=== PATIENT | female | born 2000 | race Caucasian/White ===

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

== ENCOUNTER 2020-02-28 10:42 | Emergency (ER) | payer MEDICAID, OTHER ==
[~2020-02-28] VITALS: Ht 167.6 cm; Wt 61.3 kg
[~2020-02-28 10:42] MED LIST changes: +KEFL500C17 PO; +MIRE1IUD IU
[2020-02-28 10:43] VITALS: BP 106/66
[2020-02-28] MEDS ORDERED: ALBU8.5H (10:50)
[2020-02-28] MEDS ORDERED: KEFL500C17 PO (11:29)
[2020-02-28] MEDS ORDERED: VENTAER INH (11:29)
[2020-02-28] MEDS ORDERED: CEPHALEXIN 500 MG CAP PO ONE (11:30)
== END 2020-02-28 11:58 | disposition home or self-care (01) ==
LOC: M ED 10:42
DX: J02.0 Streptococcal pharyngitis (principal); Z76.0 Encounter for issue of repeat prescription; Z88.1 Allergy status to other antibiotic agents; Z88.8 Allergy status to other drugs, medicaments and biological substances; Z91.013 Allergy to seafood; Z79.51 Long term (current) use of inhaled steroids; Z79.899 Other long term (current) drug therapy

== ENCOUNTER 2020-09-11 12:31 | Emergency (ER) | payer OTHER ==
[~2020-09-11 12:31] MED LIST changes: +ALBU8.5H
[2020-09-11] MEDS ORDERED: LORazepam 1 MG TAB PO ONE (12:45)
[2020-09-11 14:42] LABS: HEMATOCRIT 40.9 % (36.0-47.0); HEMOGLOBIN 13.8 g/dl (12.0-15.5); MEAN CORPUSCULAR HEMOGLOBIN 30.5 pg (27.0-33.0); MEAN CORPUSCULAR HGB CONC 33.7 g/dl (32.0-36.5); MEAN CORPUSCULAR VOLUME 90.5 fl (80.0-96.0); PLATELET COUNT, AUTOMATED 275 10^3/uL (150-450); RED BLOOD COUNT 4.52 10^6/uL (4.00-5.40); WHITE BLOOD COUNT 11.4 10^3/uL (4.0-10.0)
[2020-09-11 15:24] LABS: ACETAMINOPHEN LEVEL < 2.0 UG/ML (10.0-30.0); ALBUMIN 3.9 GM/DL (3.2-5.2); ALT/SGPT 21 U/L (12-78); BILIRUBIN,DIRECT 0.2 MG/DL (0.0-0.2); BILIRUBIN,TOTAL 0.5 MG/DL (0.2-1.0); BLOOD UREA NITROGEN 9 MG/DL (7-18); CALCIUM LEVEL 9.2 MG/DL (8.5-10.1); CARBON DIOXIDE LEVEL 22 MEQ/L (21-32); CHLORIDE LEVEL 108 MEQ/L (98-107); CREATININE FOR GFR 0.54 MG/DL (0.55-1.30); ETHYL ALCOHOL (ETHANOL) 0.003 % (0.000-0.010); GLUCOSE, FASTING 76 MG/DL (70-100); POTASSIUM SERUM 3.9 MEQ/L (3.5-5.1); SODIUM LEVEL 141 MEQ/L (136-145); TOTAL PROTEIN 6.9 GM/DL (6.4-8.2)
[2020-09-11] MEDS ORDERED: HALOPERIDOL 5MG/ML VIAL (J1630 PER 1) IM ONE (20:20)
[2020-09-11] MEDS ORDERED: LORazepam 2 MG/ML VIAL IM ONE (20:20)
[2020-09-11] MEDS ORDERED: diphenhydrAMINE 50MG/ML VIAL (J1200) IM ONE (20:20)
[2020-09-11 21:21] LABS: AMPHETAMINES LEVEL URINE POSITIVE (NEGATIVE); BARBITURATES URINE NEGATIVE (NEGATIVE); BENZODIAZEPINES URINE NEGATIVE (NEGATIVE); CANNABINOIDS URINE POSITIVE (NEGATIVE); COCAINE METABOLITE URINE NEGATIVE (NEGATIVE); METHADONE URINE NEGATIVE (NEGATIVE); OPIATES URINE NEGATIVE (NEGATIVE); PHENCYCLIDINE URINE NEGATIVE (NEGATIVE)
[2020-09-12 02:25] LABS: HCG, SERUM QUALITATIVE NEGATIVE (NEGATIVE)
[2020-09-12 06:59] VITALS: BP 118/67
--- NOTE | 2020-09-12 08:39 | ECGEPIP ---
[facility] - ED Test Date: 2020-09-11 Pat Name: SADA WOODRUFF Department: Room: - Gender: Female Echocardiographer: HANNAH : 2000 Requested By: Kevin Barrios Order Number: [id number] Reading MD: Kevin Morales Measurements Intervals [place] Rate: 60 P: 55 IN: 176 QRS: 103 QRSD: 98 T: 62 QT: 398 QTc: 398 Interpretive Statements Sinus rhythm with premature supraventricular complexes Rightward axis INCOMPLETE RIGHT BUNDLE BRANCH BLOCK NO PRIORS FOR COMPARISON Electronically Signed on 09-12-2020 8:39:02 EDT by Kevin Morales
== END 2020-09-12 07:04 ==
LOC: M ED 12:31
DX: F29 Unspecified psychosis not due to a substance or known physiological condition (principal); R94.31 Abnormal electrocardiogram [ECG] [EKG]; Z88.1 Allergy status to other antibiotic agents; Z91.013 Allergy to seafood; Z79.3 Long term (current) use of hormonal contraceptives
CPT/HCPCS: 36415; 51701; 80048; 80076; 80143; 80307; 82077; 84443; 84703; 85027; 87798; 93005; 96372; 99285; J1200; J1630; J2060

== ENCOUNTER 2020-11-14 22:33 | Emergency (ER) | payer MEDICAID, OTHER ==
[~2020-11-14] VITALS: Ht 165.1 cm; Wt 62.2 kg
[2020-11-14 22:35] VITALS: BP 133/76
[2020-11-15] MEDS ORDERED: BICILLIN L-A 2,400,000 UNIT/4 ML SYRINGE (J0561-24)PENICILLIN G BENZATINE IM ONE (00:10)
[2020-11-15] MEDS ORDERED: CALALOT4 TOP (00:16)
== END 2020-11-15 00:45 | disposition home or self-care (01) ==
LOC: M ED 22:33
DX: J02.0 Streptococcal pharyngitis (principal); F19.10 Other psychoactive substance abuse, uncomplicated; Z88.1 Allergy status to other antibiotic agents; Z91.013 Allergy to seafood; Z79.899 Other long term (current) drug therapy

== ENCOUNTER 2020-12-07 23:40 | Emergency (ER) | payer OTHER ==
[~2020-12-07] VITALS: Ht 170.2 cm; Wt 59.1 kg
[~2020-12-07 23:40] MED LIST changes: +CALALOT4 TOP
[2020-12-07 23:49] VITALS: BP 132/81
[2020-12-08 00:30] LABS: HEMATOCRIT 43.9 % (36.0-47.0); HEMOGLOBIN 14.6 g/dl (12.0-15.5); MEAN CORPUSCULAR HEMOGLOBIN 29.6 pg (27.0-33.0); MEAN CORPUSCULAR HGB CONC 33.3 g/dl (32.0-36.5); PLATELET COUNT, AUTOMATED 347 10^3/uL (150-450); RED BLOOD COUNT 4.93 10^6/uL (4.00-5.40); WHITE BLOOD COUNT 19.1 10^3/uL (4.0-10.0)
[2020-12-08 00:55] LABS: AMPHETAMINES LEVEL URINE NEGATIVE (NEGATIVE); BARBITURATES URINE NEGATIVE (NEGATIVE); BENZODIAZEPINES URINE NEGATIVE (NEGATIVE); CANNABINOIDS URINE POSITIVE (NEGATIVE); COCAINE METABOLITE URINE NEGATIVE (NEGATIVE); METHADONE URINE NEGATIVE (NEGATIVE); OPIATES URINE NEGATIVE (NEGATIVE); PHENCYCLIDINE URINE NEGATIVE (NEGATIVE)
[2020-12-08 00:59] LABS: ACETAMINOPHEN LEVEL < 2.0 UG/ML (10.0-30.0); ALBUMIN 4.7 GM/DL (3.2-5.2); ALT/SGPT 25 U/L (12-78); BILIRUBIN,DIRECT 0.2 MG/DL (0.0-0.2); BILIRUBIN,TOTAL 0.7 MG/DL (0.2-1.0); BLOOD UREA NITROGEN 18 MG/DL (7-18); CARBON DIOXIDE LEVEL 26 MEQ/L (21-32); CHLORIDE LEVEL 106 MEQ/L (98-107); CREATININE FOR GFR 0.81 MG/DL (0.55-1.30); ETHYL ALCOHOL (ETHANOL) < 0.003 % (0.000-0.010); GLUCOSE, FASTING 82 MG/DL (70-100); POTASSIUM SERUM 3.9 MEQ/L (3.5-5.1); SALICYLATE LEVEL 2.3 MG/DL (5.0-30.0); SODIUM LEVEL 138 MEQ/L (136-145); TOTAL PROTEIN 8.4 GM/DL (6.4-8.2)
[2020-12-08] MEDS ORDERED: LORazepam 1 MG TAB PO STA (01:08)
== END 2020-12-08 03:20 | disposition home or self-care (01) ==
LOC: M ED 23:40
DX: Z04.6 Encounter for general psychiatric examination, requested by authority (principal); F33.9 Major depressive disorder, recurrent, unspecified; E11.9 Type 2 diabetes mellitus without complications; J45.909 Unspecified asthma, uncomplicated; F17.200 Nicotine dependence, unspecified, uncomplicated; Z88.1 Allergy status to other antibiotic agents; Z91.013 Allergy to seafood; Z79.3 Long term (current) use of hormonal contraceptives

== ENCOUNTER → 2022-03-25 | Outpatient (REF) | payer MEDICARE, OTHER ==
[~2022-03-25] MED LIST changes: -PSEU30TA85 PO; +PSEU30TA86 PO
[2022-03-25 17:00] LABS: BASO # 0.1 10^3/uL (0.0-0.2); BASO % 0.6 % (0.0-1.0); EOS # 0.9 10^3/uL (0.0-0.5); HEMATOCRIT 44.4 % (36.0-47.0); LYMPH # 1.6 10^3/uL (1.5-5.0); LYMPH % 14.2 % (24.0-44.0); MEAN CORPUSCULAR HEMOGLOBIN 29.2 pg (27.0-33.0); MEAN CORPUSCULAR HGB CONC 31.5 g/dl (32.0-36.5); MEAN CORPUSCULAR VOLUME 92.7 fl (80.0-96.0); MONO # 0.7 10^3/uL (0.0-0.8); MONO % 6.7 % (2.0-8.0); NEUTROPHILS # 7.7 10^3/uL (1.5-8.5); NEUTROPHILS % 69.7 % (36.0-66.0); PLATELET COUNT, AUTOMATED 302 10^3/uL (150-450); RED BLOOD COUNT 4.79 10^6/uL (4.00-5.40)
[2022-03-25 17:15] LABS: ALBUMIN 3.8 GM/DL (3.2-5.2); ALT/SGPT 13 U/L (12-78); BILIRUBIN,TOTAL 0.4 MG/DL (0.2-1.0); BLOOD UREA NITROGEN 11 MG/DL (7-18); CALCIUM LEVEL 9.1 MG/DL (8.5-10.1); CARBON DIOXIDE LEVEL 30 MEQ/L (21-32); CHLORIDE LEVEL 108 MEQ/L (98-107); CREATININE FOR GFR 0.68 MG/DL (0.55-1.30); GLOMERULAR FILTRATION RATE > 60.0 (>60); GLUCOSE, FASTING 73 MG/DL (70-100); SODIUM LEVEL 142 MEQ/L (136-145); TOTAL PROTEIN 7.4 GM/DL (6.4-8.2)
[2022-03-25 18:06] LABS: HEPATITIS C VIRUS ABY INDEX 0.1 INDEX (<0.8); HIV 1&2 SCREEN CENTAUR NEGATIVE (NEGATIVE)
== END ==
LOC: M LAB REF 16:33
PROVIDERS: ATTEND Physician Assistant
DX: Z11.59 Encounter for screening for other viral diseases (principal); Z11.4 Encounter for screening for human immunodeficiency virus [HIV]; R22.1 Localized swelling, mass and lump, neck

== ENCOUNTER → 2022-03-31 | Outpatient (CLI) | payer MEDICARE, OTHER | LOC: M RAD 08:42 | PROVIDERS: ATTEND Physician Assistant | DX: R22.1 Localized swelling, mass and lump, neck (principal) ==

== ENCOUNTER → 2022-04-14 | Outpatient (REF) | payer OTHER, MEDICAID ==
[2022-04-14 17:49] LABS: BASO # 0.1 10^3/uL (0.0-0.2); BASO % 0.5 % (0.0-1.0); EOS # 0.8 10^3/uL (0.0-0.5); EOS % 5.6 % (0.0-3.0); HEMATOCRIT 43.1 % (36.0-47.0); HEMOGLOBIN 13.7 g/dl (12.0-15.5); LYMPH # 1.6 10^3/uL (1.5-5.0); LYMPH % 10.7 % (24.0-44.0); MEAN CORPUSCULAR HEMOGLOBIN 30.3 pg (27.0-33.0); MEAN CORPUSCULAR HGB CONC 31.8 g/dl (32.0-36.5); MEAN CORPUSCULAR VOLUME 95.4 fl (80.0-96.0); MONO # 0.9 10^3/uL (0.0-0.8); MONO % 5.8 % (2.0-8.0); NEUTROPHILS # 11.4 10^3/uL (1.5-8.5); NEUTROPHILS % 77.1 % (36.0-66.0); PLATELET COUNT, AUTOMATED 294 10^3/uL (150-450); RED BLOOD COUNT 4.52 10^6/uL (4.00-5.40); WHITE BLOOD COUNT 14.7 10^3/uL (4.0-10.0)
== END ==
LOC: M LAB REF 16:17
PROVIDERS: ATTEND Physician Assistant
DX: R59.0 Localized enlarged lymph nodes (principal)

== ENCOUNTER → 2022-06-10 | Outpatient (CLI) | payer OTHER ==
[~2022-06-10] MED LIST changes: +LIDOCAINE 1% MDV 20ML VIAL As Ordered ONE
[2022-06-10 13:06] VITALS: BP 119/76
== END ==
LOC: M IRPRO 12:29
PROVIDERS: ATTEND Otolaryngology
DX: R22.1 Localized swelling, mass and lump, neck (principal)

== ENCOUNTER → 2022-06-29 | Outpatient (CLI) | payer OTHER ==
[~2022-06-29] MED LIST changes: -LIDOCAINE 1% MDV 20ML VIAL As Ordered ONE
== END ==
LOC: M LABSMTC 10:19
PROVIDERS: ATTEND Anesthesiology
DX: Z01.818 Encounter for other preprocedural examination (principal)

== ENCOUNTER → 2022-08-10 | Outpatient (CLI) | payer OTHER ==
[~2022-08-10] MED LIST changes: +mirena
== END ==
LOC: M LABSMTC 08:09
PROVIDERS: ATTEND Anesthesiology
DX: Z01.812 Encounter for preprocedural laboratory examination (principal)

== ENCOUNTER 2022-08-13 11:27 | Day surgery (SDC) | payer OTHER ==
[~2022-08-13] VITALS: Ht 167.6 cm; Wt 63.9 kg
[2022-08-13] MEDS ORDERED: LR 1,000 ML IV SCH ×2 (12:15→14:30)
[2022-08-13] MEDS ORDERED: fentaNYL 100 MCG/2 ML INJECTION As Ordered ONE ×2 (12:18→13:05)
[2022-08-13] MEDS ORDERED: ROCURONIUM BROMIDE 50MG/5ML VIAL As Ordered ONE (12:18)
[2022-08-13] MEDS ORDERED: propofoL 200 MG/20 ML VIAL As Ordered ONE (12:18)
[2022-08-13] MEDS ORDERED: MIDAZOLAM INJ 2MG/2ML VIAL As Ordered ONE (12:18)
[2022-08-13] MEDS ORDERED: SUCCINYLCHOLINE 100MG/5ML SYRINGE As Ordered ONE (12:18)
[2022-08-13] MEDS ORDERED: ONDANSETRON 4MG 2ML VIAL As Ordered ONE (12:18)
[2022-08-13] MEDS ORDERED: LIDOCAINE 2% 100MG/5ML SDV (FOR ANES.) As Ordered ONE (12:18)
[2022-08-13] MEDS ORDERED: ACETAMINOPHEN 1000MG 100ML IV BAG As Ordered ONE (12:22)
[2022-08-13] MEDS ORDERED: LIDOCAINE W/EPINEPHRINE 1% 20ML VIAL As Ordered ONE (12:26)
[2022-08-13] MEDS ORDERED: BACITRACIN OINTMENT 30GM TUBE As Ordered ONE (12:26)
[2022-08-13] MEDS ORDERED: KETOROLAC 60MG 2ML VIAL As Ordered ONE ×2 (12:59→13:54)
[2022-08-13] MEDS ORDERED: SEVOFLURANE INHAL SOLN 250 ML BTL As Ordered ONE (13:42)
[2022-08-13] MEDS ORDERED: ePHEDrine SULFATE 25 MG/5 ML(5MG/ML) SYRINGE As Ordered ONE (13:56)
[2022-08-13] MEDS ORDERED: PHENYLephrine 500MCG 5ML (100MCG/ML) SYRINGE As Ordered ONE (13:56)
[2022-08-13] MEDS ORDERED: fentaNYL 100 MCG/2 ML INJECTION IV PRN (14:30)
[2022-08-13] MEDS ORDERED: oxyCODONE 5MG TAB PO PRN (14:30)
[2022-08-13] MEDS ORDERED: ONDANSETRON 4MG 2ML VIAL IV PRN ×2 (14:30→15:35)
[2022-08-13] MEDS ORDERED: HYDROMORPHONE HCL 0.5 MG/ 0.5 ML SYRINGE IV PRN (14:30)
[2022-08-13 15:03] VITALS: BP 138/82
== END 2022-08-13 15:26 | disposition home or self-care (01) ==
LOC: M SDC 11:27
PROVIDERS: ATTEND Otolaryngology
DX: C81.11 Nodular sclerosis Hodgkin lymphoma, lymph nodes of head, face, and neck (principal); Z88.0 Allergy status to penicillin; Z91.013 Allergy to seafood; Z88.8 Allergy status to other drugs, medicaments and biological substances
CPT/HCPCS: 38500; 81025; 88305; J0330; J1100; J2250; J2370; J2405; J3010

== ENCOUNTER 2022-09-17 23:43 | Inpatient (IN) | payer MEDICAID, OTHER ==
[~2022-09-17] VITALS: Ht 165.1 cm; Wt 62.1 kg
[~2022-09-17 23:43] MED LIST changes: +ALBU8.5H INH
[2022-09-18 00:46] LABS: BARBITURATES URINE NEGATIVE (NEGATIVE); COCAINE METABOLITE URINE NEGATIVE (NEGATIVE); METHADONE URINE NEGATIVE (NEGATIVE); OPIATES URINE NEGATIVE (NEGATIVE); PHENCYCLIDINE URINE NEGATIVE (NEGATIVE)
[2022-09-18 00:47] LABS: AMPHETAMINES LEVEL URINE POSITIVE (NEGATIVE); BENZODIAZEPINES URINE POSITIVE (NEGATIVE); CANNABINOIDS URINE POSITIVE (NEGATIVE)
[2022-09-18 00:48] LABS: ETHYL ALCOHOL (ETHANOL) 0.102 % (0.000-0.010)
[2022-09-18 00:48] LABS: HEMATOCRIT 41.4 % (36.0-47.0); HEMOGLOBIN 13.6 g/dl (12.0-15.5); MEAN CORPUSCULAR HEMOGLOBIN 29.4 pg (27.0-33.0); MEAN CORPUSCULAR HGB CONC 32.9 g/dl (32.0-36.5); MEAN CORPUSCULAR VOLUME 89.4 fl (80.0-96.0); PLATELET COUNT, AUTOMATED 368 10^3/uL (150-450); RED BLOOD COUNT 4.63 10^6/uL (4.00-5.40); WHITE BLOOD COUNT 16.4 10^3/uL (4.0-10.0)
[2022-09-18 00:50] LABS: ACETAMINOPHEN LEVEL < 2.0 UG/ML (10.0-20.0); ALBUMIN 4.2 G/DL (3.2-5.2); ALKALINE PHOSPHATASE 156 U/L (46-116); ALT/SGPT 13 U/L (7.0-40); AST/SGOT 17 U/L (<34); BILIRUBIN,DIRECT 0.2 MG/DL (<0.4); BILIRUBIN,TOTAL 0.4 MG/DL (0.3-1.2); BLOOD UREA NITROGEN 12 MG/DL (9-23); CALCIUM LEVEL 9.4 MG/DL (8.5-10.1); CARBON DIOXIDE LEVEL 26 MMOL/L (20-31); CHLORIDE LEVEL 100 MMOL/L (98-107); CREATININE FOR GFR 0.79 MG/DL (0.55-1.30); GLOMERULAR FILTRATION RATE > 60.0 (>60); GLUCOSE, FASTING 79 MG/DL (60-100); POTASSIUM SERUM 3.6 MMOL/L (3.5-5.1); SALICYLATE LEVEL < 3.0 MG/DL (<30); SODIUM LEVEL 138 MMOL/L (136-145)
[2022-09-18 00:52] LABS: THYROID STIMULATING HORMONE 4.711 uIU/ML (0.55-4.78)
[2022-09-18 01:23] LABS: HCG, SERUM QUALITATIVE NEGATIVE (NEGATIVE)
[2022-09-18] MEDS ORDERED: LORazepam 2 MG TAB PO ONE ×2 (04:00→17:20)
[2022-09-18] MEDS ORDERED: MELA3TAB30 PO (15:10)
[2022-09-18] MEDS ORDERED: MIREIUD (15:10)
[2022-09-18] MEDS ORDERED: HOME MED LIST COMPLETE! XX SCH (15:15)
[2022-09-18] MEDS ORDERED: diphenhydrAMINE 50MG/ML VIAL IM ONE (17:50)
[2022-09-18] MEDS ORDERED: HALOPERIDOL 5MG/ML 1ML VIAL IM ONE (17:50)
[2022-09-18] MEDS ORDERED: OLANZapine ORAL DISINTEGRATING TAB 5MG PO PRN (21:55)
[2022-09-18 23:20] VITALS: BP 94/59
[2022-09-19] MEDS ORDERED: LORazepam 2 MG TAB PO PRN (12:50)
[2022-09-19] MEDS ORDERED: ALBUTEROL 90 MCG/ACT 8GM HFA INHALER INH PRN (12:55)
[2022-09-19] MEDS: THIAMINE 100 MG TAB PO SCH ×2 (13:32→20:21)
[2022-09-19] MEDS: FOLIC ACID 1MG TAB PO SCH (13:32)
[2022-09-19] MEDS: NICOTINE 14 MG/24 HR TRANSDERMAL TD SCH (13:33)
[2022-09-19] MEDS: MULTIVITAMINS/MINERALS THERAP 1 TAB PO SCH (13:33)
[2022-09-19] MEDS: ACETAMINOPHEN TAB 650MG DOSE (2X325MG) PO PRN (13:35)
[2022-09-19] MEDS: NEOSPORIN TOP OINT 15GM TOP SCH ×2 (15:58→20:22)
[2022-09-19 16:28] VITALS: BP 98/56
[2022-09-19] MEDS: OLANZapine 5 MG TAB PO SCH (20:21)
[2022-09-19] MEDS: traZODone 50 MG TAB PO PRN (21:47)
[2022-09-20] MEDS: MULTIVITAMINS/MINERALS THERAP 1 TAB PO SCH (09:00)
[2022-09-20] MEDS: NEOSPORIN TOP OINT 15GM TOP SCH ×3 (09:00→20:06)
[2022-09-20] MEDS: FOLIC ACID 1MG TAB PO SCH (10:26)
[2022-09-20] MEDS: THIAMINE 100 MG TAB PO SCH ×2 (10:26→20:06)
[2022-09-20] MEDS: NICOTINE 14 MG/24 HR TRANSDERMAL TD SCH (10:26)
[2022-09-20] MEDS: ACETAMINOPHEN TAB 650MG DOSE (2X325MG) PO PRN (10:29)
[2022-09-20 18:36] VITALS: BP 119/84
[2022-09-20 20:00] VITALS: BP 119/84
[2022-09-20] MEDS: OLANZapine 5 MG TAB PO SCH (20:06)
[2022-09-20] MEDS: traZODone 50 MG TAB PO PRN (20:06)
[2022-09-21 05:50] VITALS: BP 93/52
[2022-09-21 05:51] VITALS: BP 93/52
[2022-09-21] MEDS: FOLIC ACID 1MG TAB PO SCH (08:05)
[2022-09-21] MEDS: THIAMINE 100 MG TAB PO SCH ×2 (08:05→20:03)
[2022-09-21] MEDS: NICOTINE 14 MG/24 HR TRANSDERMAL TD SCH (08:05)
[2022-09-21] MEDS: MULTIVITAMINS/MINERALS THERAP 1 TAB PO SCH (08:05)
[2022-09-21] MEDS: NEOSPORIN TOP OINT 15GM TOP SCH ×3 (08:06→20:03)
[2022-09-21] MEDS: ACETAMINOPHEN TAB 650MG DOSE (2X325MG) PO PRN (13:45)
[2022-09-21] MEDS ORDERED: NICO14PA TD (14:00)
[2022-09-21] MEDS ORDERED: HYDR-3363 PO (14:00)
[2022-09-21] MEDS ORDERED: OLAN1TAB16 PO (14:00)
[2022-09-21 18:41] VITALS: BP 122/67
[2022-09-21] MEDS ORDERED: traZODone 100 MG TAB PO PRN (19:55)
[2022-09-21] MEDS: OLANZapine 5 MG TAB PO SCH (20:03)
[2022-09-22 06:10] VITALS: BP 96/55
[2022-09-22] MEDS: MULTIVITAMINS/MINERALS THERAP 1 TAB PO SCH (08:23)
[2022-09-22] MEDS: NICOTINE 14 MG/24 HR TRANSDERMAL TD SCH (08:23)
[2022-09-22] MEDS: FOLIC ACID 1MG TAB PO SCH (08:23)
[2022-09-22] MEDS: NEOSPORIN TOP OINT 15GM TOP SCH (08:26)
== END 2022-09-22 11:47 | disposition home or self-care (01) | DRG 751 ==
LOC: EDBD 23:43 → M ED 23:43 → M ED INP 09-18 21:43 → M PSY 09-18 23:38
PROVIDERS: ADMIT Psychiatry & Neurology Psychiatry; ATTEND Psychiatry & Neurology Psychiatry
DX: F29 Unspecified psychosis not due to a substance or known physiological condition (principal); C81.90 Hodgkin lymphoma, unspecified, unspecified site; F10.10 Alcohol abuse, uncomplicated; F15.959 Other stimulant use, unspecified with stimulant-induced psychotic disorder, unspecified; F12.90 Cannabis use, unspecified, uncomplicated; Z91.013 Allergy to seafood; Z88.0 Allergy status to penicillin; Z88.8 Allergy status to other drugs, medicaments and biological substances; F43.10 Post-traumatic stress disorder, unspecified; F17.210 Nicotine dependence, cigarettes, uncomplicated; J45.909 Unspecified asthma, uncomplicated; Z79.899 Other long term (current) drug therapy

== ENCOUNTER 2024-03-01 08:22 | Day surgery (SDC) | payer OTHER ==
[~2024-03-01] VITALS: Ht 167.6 cm; Wt 72.6 kg
[~2024-03-01 08:22] MED LIST changes: +HYDR-3363 PO; +HYDR50TA70 PO; +LEXA1TAB PO; +MELA3TAB30 PO; +MIREIUD; +NICO14PA TD; +OLAN1TAB16 PO; +OLAN5ZYD SL; +ONDA-282 PO; -ONDA4TAB6 PO; -PSEU30TA86 PO; +PSEU30TA87 PO
[2024-03-01] MEDS ORDERED: LR 1,000 ML IV SCH (08:50)
[2024-03-01] MEDS ORDERED: SODIUM CHLORIDE 0.9% INJ 10 ML SYR IV PRN (08:50)
[2024-03-01] MEDS ORDERED: MIDAZOLAM INJ 2MG/2ML VIAL As Ordered ONE (08:55)
[2024-03-01] MEDS ORDERED: fentaNYL 100 MCG/2 ML INJECTION As Ordered ONE (08:55)
[2024-03-01] MEDS ORDERED: ROCURONIUM BROMIDE 50MG/5ML VIAL As Ordered ONE (08:56)
[2024-03-01] MEDS ORDERED: propofoL 200 MG/20 ML VIAL As Ordered ONE (08:56)
[2024-03-01] MEDS ORDERED: SUGAMMADEX SODIUM 500 MG/5 ML VIAL (BRIDION) As Ordered ONE (08:56)
[2024-03-01] MEDS ORDERED: LIDOCAINE 2% 100MG/5ML SDV (FOR ANES.) As Ordered ONE (08:56)
[2024-03-01] MEDS ORDERED: ONDANSETRON 4MG 2ML VIAL As Ordered ONE (08:56)
[2024-03-01] MEDS: CETACAINE SPRAY 5GM As Ordered ONE (10:37)
[2024-03-01] MEDS: EPINEPHrine 1MG/10ML SYRINGE 1.5IN As Ordered ONE (11:01)
[2024-03-01] MEDS: THROMBIN 5,000 UNITS VIAL As Ordered ONE (11:01)
[2024-03-01] MEDS ORDERED: ONDANSETRON 4MG 2ML VIAL IV PRN (11:05)
[2024-03-01] MEDS ORDERED: oxyCODONE 5MG TAB PO PRN (11:05)
[2024-03-01] MEDS ORDERED: fentaNYL 100 MCG/2 ML INJECTION IV PRN (11:05)
[2024-03-01] MEDS ORDERED: MORPHINE 2 MG/ML 1ML VIAL IV PRN (11:05)
[2024-03-01 11:59] VITALS: BP 114/54; TEMP 97.2; O2SAT 100
== END 2024-03-01 12:22 | disposition home or self-care (01) ==
LOC: M SDC 08:22
PROVIDERS: ATTEND Internal Medicine Pulmonary Disease
DX: R59.0 Localized enlarged lymph nodes (principal); C81.92 Hodgkin lymphoma, unspecified, intrathoracic lymph nodes; F17.290 Nicotine dependence, other tobacco product, uncomplicated; Z92.21 Personal history of antineoplastic chemotherapy; F43.10 Post-traumatic stress disorder, unspecified; Z88.0 Allergy status to penicillin; Z91.013 Allergy to seafood; Z88.8 Allergy status to other drugs, medicaments and biological substances
CPT/HCPCS: 31652; 71045; 81025; 88173; 88305; 93005; J1100; J2250; J2405; J3010

== ENCOUNTER 2024-03-06 11:47 | Day surgery (SDC) | payer OTHER ==
[~2024-03-06] VITALS: Ht 167.6 cm; Wt 71.8 kg
[~2024-03-06 11:47] MED LIST changes: +CLINDAMYCIN 900 MG in IV 1 EA IV ONE
[2024-03-06] MEDS ORDERED: MIDAZOLAM INJ 2MG/2ML VIAL As Ordered ONE (12:06)
[2024-03-06] MEDS ORDERED: fentaNYL 100 MCG/2 ML INJECTION As Ordered ONE (12:07)
[2024-03-06] MEDS ORDERED: LABETALOL 100MG/20ML VIAL As Ordered ONE (12:08)
[2024-03-06] MEDS ORDERED: SODIUM CHLORIDE 0.9% INJ 10 ML SYR IV PRN (12:50)
[2024-03-06] MEDS: LR 1,000 ML IV SCH (12:57)
[2024-03-06] MEDS ORDERED: propofoL 200 MG/20 ML VIAL As Ordered ONE (13:00)
[2024-03-06] MEDS ORDERED: LIDOCAINE 2% 100MG/5ML SDV (FOR ANES.) As Ordered ONE (13:01)
[2024-03-06] MEDS ORDERED: ROCURONIUM BROMIDE 50MG/5ML VIAL As Ordered ONE (13:01)
[2024-03-06] MEDS ORDERED: ACETAMINOPHEN 1000MG 100ML IV BAG As Ordered ONE (13:04)
[2024-03-06] MEDS ORDERED: OXYMETAZOLINE 0.05% NASAL SPRAY (AFRIN) As Ordered ONE (13:06)
[2024-03-06] MEDS ORDERED: LIDOCAINE 2% W/ EPINEPHRINE 1.7 ML DENTAL INJ As Ordered ONE (13:07)
[2024-03-06] MEDS ORDERED: ONDANSETRON 4MG 2ML VIAL As Ordered ONE (13:27)
[2024-03-06] MEDS ORDERED: KETOROLAC 60MG 2ML VIAL As Ordered ONE (13:28)
[2024-03-06] MEDS ORDERED: SUGAMMADEX SODIUM 500 MG/5 ML VIAL (BRIDION) As Ordered ONE (13:28)
[2024-03-06] MEDS ORDERED: dexmedeTOMIDine (4MCG/ML)200MCG/50ML BTL (PRECEDEX) As Ordered ONE (13:39)
[2024-03-06] MEDS ORDERED: ONDANSETRON 4MG 2ML VIAL IV PRN (14:05)
[2024-03-06] MEDS ORDERED: HYDROMORPHONE HCL 0.5 MG/ 0.5 ML SYRINGE IV PRN (14:05)
[2024-03-06] MEDS ORDERED: LR 1,000 ML IV SCH (14:05)
[2024-03-06] MEDS ORDERED: fentaNYL 100 MCG/2 ML INJECTION IV PRN (14:05)
[2024-03-06] MEDS ORDERED: oxyCODONE 5MG TAB PO PRN (14:05)
[2024-03-06 15:15] VITALS: BP 118/73; TEMP 98; O2SAT 100
[2024-03-07] MEDS ORDERED: SODIUM CHLORIDE 0.9% INJ 10 ML SYR IV SCH (09:00)
== END 2024-03-06 15:23 | disposition home or self-care (01) ==
LOC: M SDC 11:47
PROVIDERS: ATTEND Dentist
DX: K02.9 Dental caries, unspecified (principal); F41.9 Anxiety disorder, unspecified; F43.10 Post-traumatic stress disorder, unspecified; F32.A Depression, unspecified; Z85.71 Personal history of Hodgkin lymphoma; Z92.21 Personal history of antineoplastic chemotherapy; F17.200 Nicotine dependence, unspecified, uncomplicated; Z79.51 Long term (current) use of inhaled steroids; Z88.0 Allergy status to penicillin; Z91.013 Allergy to seafood; Z88.8 Allergy status to other drugs, medicaments and biological substances
CPT/HCPCS: 81025; 88300; D7210; D9223; J0131; J1100; J1885; J2250; J2405; J3010

== ENCOUNTER → 2024-05-16 | Outpatient (CLI) | payer OTHER ==
[~2024-05-16] MED LIST changes: +BENA25CA4 PO; -CLINDAMYCIN 900 MG in IV 1 EA IV ONE
== END ==
LOC: M RAD 12:26
PROVIDERS: ATTEND Otolaryngology
DX: R22.1 Localized swelling, mass and lump, neck (principal)

== ENCOUNTER → 2025-03-14 | Outpatient (CLI) | payer OTHER ==
[~2025-03-14] MED LIST changes: +AZIT-12 PO
== END ==
LOC: M WHC 07:58
PROVIDERS: ATTEND Specialist
DX: N63.10 Unspecified lump in the right breast, unspecified quadrant (principal); C81.90 Hodgkin lymphoma, unspecified, unspecified site; R92.30 Dense breasts, unspecified